=== PATIENT | male | born 1970 | race African-American/Black ===

== ENCOUNTER 2016-08-02 13:18 | Observation (INO) | payer OTHER ==
[2016-08-02 13:45] VITALS: BMI 38.5
[2016-08-02] MEDS ORDERED: NS 1,000 ML IV ONE (13:46)
[2016-08-02] MEDS ORDERED: ADENOSINE 6 MG/2 ML SYR IV ONE (13:46)
[2016-08-02 13:56] LABS: AUTOMATED BASOPHIL 0.7 % (0-2); AUTOMATED EOSINOPHIL 3.7 % (0-5); AUTOMATED LYMPH 39.2 % (17-44); AUTOMATED MONOCYTE 9.1 % (3-10); AUTOMATED NEUTROPHIL 47.3 % (45-76); MPV 7.7 fL (7.4-10.4)
[2016-08-02 14:07] LABS: BLOOD UREA NITROGEN 13 MG/DL (9-20); CALCIUM 8.8 MG/DL (8.4-10.2); CALCULATED OSMOLALITY 273 MOs/Kg (270-290); CHLORIDE 108 mEq/L (98-107); CPK TOTAL WITH POSSIBLE MB 369 IU/L (55-170); GLUCOSE 136 MG/DL (70-99); SODIUM LEVEL 141 mEq/L (137-146); TOTAL PROTEIN 7.6 G/DL (6.3-8.2)
--- NOTE | 2016-08-02 14:17 | EDPRACDOC ---
- General Information Chief Complaint: Chest Pain Stated Complaint: NECK PAIN WITH TIGHTNESS IN LT UPPER ARM Time Seen by Provider: 08/02/16 13:45 Mode of Arrival: Car Home Medications: Home Medications Unknown Med 1 tab PO .SEE COMMENTS 08/02/16 Allergies/Adverse Reactions: Allergies Allergy/AdvReac Type Severity Reaction Status Date / Time No Known Allergies Allergy Verified 08/02/16 13:39 - History of Present Illness Onset: today HPI: PT PRESENTS WITH CP AND PSVT. PT STATES WHEN HE WOKE UP THIS MORNING HE BEGAN HAVING MILD CP. STATES HE WENT TO WORK AND BEGAN HAVING LEFT ARM PAIN AND NUMBNESS AND NECK PAIN. PT PRESENTS WITH ED WITH HR 180 Chest Pain Location: Reports: Substernal Pain Radiation: Reports: Neck Symptoms Occur: Reports: While asleep Cardiac Risk Factors: Reports: None Cardiac History of: Reports: None PE Risk Factors: Reports: None Medications within 24 Hours: Reports: None Prehospital Care: Reports: None Pain Came On: Reports: Gradually Pain Status: Present Now Pain Description: Reports: Tightness Pain Severity: Mild Pain Worsens With: Reports: Nothing Pain Improves With: Reports: Nothing Associated Signs and Symptoms: Reports: Palpitations ED Past Medical History - History Reviewed Yes Nurses notes reviewed and agree except as marked - Patient Medical History Respiratory History: Reports: Asthma Systemic History: Denies: Cancer - Social Medical History Smoking Status: Never smoker EDM Review of Systems - Review of Systems ROS Negative Except as Marked: Yes All systems reviewed and were negative except as marked - Physical Exam Constitutional: Alert Oriented to: Time, Person, Place Last recorded Vital Signs: Last Vital Signs Temp 98.7 F 08/02/16 13:39 Pulse 160 H 08/02/16 13:53 Resp 18 08/02/16 13:39 BP 128/93 08/02/16 13:53 Pulse Ox 98 08/02/16 13:39 Oxygen Pulse Oxygen Saturation 98 O2 Device Room Air Oxygen Flow Rate Fraction of Inspired Oxygen ( FIO2) - HEENT Head: Normal ( normocephalic) Eye Exam: Normal (PERRL, EOMI, Sclera white) Oropharynx: Normal (Pharynx:Moist without exudate,Gums-no swelling) Nose: No Symptoms Reported (septum midline) Neck: Normal (FROM, trachea at midline) - Respiratory/Cardiovascular Respiratory: Normal - CTA (BBS clear to auscultation without adventitious sounds ) Cardiovascular: Tachycardia - GI Auscultation: Normal (NABS) Palpation: Normal (Soft,No rebound or guarding, non distended) Tenderness: Non tender Abdi's Sign: Negative Rectal Exam: Deferred - Musculoskeletal Back: Normal (Non-Tender) Extremities: Normal (Normal tone, Pulses 2+ No cyanosis or edema, FROM) - Integumentary Skin: Normal, Warm, Dry Lymphatics: Normal (no adenopathy) - Neurologic Memory Impaired: Normal Motor Function: Normal (Normal tone, Pulses 2+ No cyanosis or edema, FROM) Cranial Nerve: Normal (CN II-X11 intact sensation, strength 5/5) Cerebellar: Normal Mood Description: Normal Perception: Normal ED Chest Pain Exam - Respiratory/Cardiovascular Respiratory: Normal - CTA Cardiovascular/Chest: Tachycardia Radial Pulse: Normal Femoral Pulse: Normal Pedal Pulse: Normal Carotid Arteries: Normal Edema: negative: 1+, 2+, 3+, 4+, 5, 6 Chest Palpation: Normal - Differential Diagnosis Other - Action Patient received Aspirin within last 24 hours?: No ASA given in the ED: No Patient received Beta Ahmet within last 24hrs: No - Results All Results Reviewed and Normal except as Highlighted below: Yes 08/02/16 13:49 08/02/16 13:49 WBC 6.6 xk/uL (3.8-10.8) 08/02/16 13:49 RBC 5.63 xM/uL (4.70-6.10) 08/02/16 13:49 Hgb 14.3 g/dL (14.0-18.0) 08/02/16 13:49 Hct 43.9 % (42-52) 08/02/16 13:49 MCV 78 fL (80-94) L 08/02/16 13:49 MCH 25.5 pg (27-32) L 08/02/16 13:49 MCHC 32.7 g/dl (33-36) L 08/02/16 13:49 RDW 14.4 % (11.5-14.5) 08/02/16 13:49 Plt Count 264 xk/uL (130-400) 08/02/16 13:49 MPV 7.7 fL (7.4-10.4) 08/02/16 13:49 Neut % (Auto) 47.3 % (45-76) 08/02/16 13:49 Lymph % (Auto) 39.2 % (17-44) 08/02/16 13:49 [place] % (Auto) 9.1 % (3-10) 08/02/16 13:49 Eos % (Auto) 3.7 % (0-5) 08/02/16 13:49 Baso % (Auto) 0.7 % (0-2) 08/02/16 13:49 Absolute Neuts (auto) 3.10 xk/uL (1.7-8.2) 08/02/16 13:49 Absolute Lymphs (auto) 2.57 xk/uL (0.65-4.75) 08/02/16 13:49 Sodium 141 mEq/L (137-146) 08/02/16 13:49 Potassium 4.1 mEq/L (3.5-5.1) 08/02/16 13:49 Chloride 108 mEq/L (98-107) H 08/02/16 13:49 Carbon Dioxide 22 mMOL/L (22-33) 08/02/16 13:49 Anion Gap 15 mEq/L (8-16) 08/02/16 13:49 BUN 13 MG/DL (9-20) 08/02/16 13:49 Creatinine 0.90 MG/DL (0.66-1.25) 08/02/16 13:49 Estimated GFR (MDRD) > 60 mL/min (>=60) 08/02/16 13:49 Glucose 136 MG/DL (70-99) H 08/02/16 13:49 Calculated Osmolality 273 MOs/Kg (270-290) 08/02/16 13:49 Calcium 8.8 MG/DL (8.4-10.2) 08/02/16 13:49 Total Bilirubin 0.5 MG/DL (0.2-1.3) 08/02/16 13:49 AST 28 IU/L (17-59) 08/02/16 13:49 ALT 43 IU/L (21-72) 08/02/16 13:49 Alkaline Phosphatase 73 IU/L (38-126) 08/02/16 13:49 Creatine Kinase 369 IU/L (55-170) H 08/02/16 13:49 Total Protein 7.6 G/DL (6.3-8.2) 08/02/16 13:49 Albumin 4.1 G/DL (3.5-5.0) 08/02/16 13:49 Lab Results 08/02/16 08/02/16 13:49 13:49 WBC 6.6 RBC 5.63 Hgb 14.3 Hct 43.9 MCV 78 L MCH 25.5 L MCHC 32.7 L RDW 14.4 Plt Count 264 MPV 7.7 Neut % (Auto) 47.3 Lymph % (Auto) 39.2 [place] % (Auto) 9.1 Eos % (Auto) 3.7 Baso % (Auto) 0.7 Absolute Neuts (auto) 3.10 Absolute Lymphs (auto) 2.57 Sodium 141 Potassium 4.1 Chloride 108 H Carbon Dioxide 22 Anion Gap 15 BUN 13 Creatinine 0.90 Estimated GFR (MDRD) > 60 Glucose 136 H Calculated Osmolality 273 Calcium 8.8 Total Bilirubin 0.5 AST 28 ALT 43 Alkaline Phosphatase 73 Creatine Kinase 369 H Total Protein 7.6 Albumin 4.1 Laboratory Results - last 24 hr 08/02/16 08/02/16 13:49 13:49 WBC 6.6 RBC 5.63 Hgb 14.3 Hct 43.9 MCV 78 L MCH 25.5 L MCHC 32.7 L RDW 14.4 Plt Count 264 MPV 7.7 Neut % (Auto) 47.3 Lymph % (Auto) 39.2 [place] % (Auto) 9.1 Eos % (Auto) 3.7 Baso % (Auto) 0.7 Absolute Neuts (auto) 3.10 Absolute Lymphs (auto) 2.57 Sodium 141 Potassium 4.1 Chloride 108 H Carbon Dioxide 22 Anion Gap 15 BUN 13 Creatinine 0.90 Estimated GFR (MDRD) > 60 Glucose 136 H Calculated Osmolality 273 Calcium 8.8 Total Bilirubin 0.5 AST 28 ALT 43 Alkaline Phosphatase 73 Creatine Kinase 369 H Total Protein 7.6 Albumin 4.1 Laboratory Results 08/02/16 13:49 08/02/16 13:49 - EKG EKG #1 EKG Time: 13:45 -: Yes EKG interpreted by me Rate: bpm: 175 [place]: Normal Rhythm: PSVT Block: None Hypertrophy: None ST: Nonsp EKG #2 EKG Time: 13:54 -: Yes EKG interpreted by me Rate: bpm: 98 [place]: Normal Rhythm: NSR Block: None Hypertrophy: None ST: Normal Comments: AFTER ADENOSINE - Departure Disposition: Admit IP To This Hospital Condition: Stable Final Diagnosis: PSVT (paroxysmal supraventricular tachycardia) Chest pain Qualifiers: Chest pain type: unspecified Qualified Code(s): R07.9 - Chest pain, unspecified Instructions: Chest Pain (ED), Chest Wall Pain Education/Counseling Given To: Patient Education/Counseling Given Regarding: Diagnosis, Treatment, Prognosis, Follow Up Referrals: Carmelo Recinos MD [Staff Physician] - One Week Jorge Benoit II, MD [Staff Physician] - One Week Decision to Admit Time: 16:29 Decision to admit date: 08/02/16 Decision to admit: from ED - Physician Consulted Hospitalist Time Called: 16:29 Provider Called: Yamil Adler Time [employer]ator Returned Call: 16:29
--- NOTE | 2016-08-02 14:18 | DIRPT ---
CLINICAL DATA: Posterior neck and chest pain for 2 days. EXAM: PORTABLE CHEST 1 VIEW COMPARISON: 11/04/2015 FINDINGS: The heart size and mediastinal contours are within normal limits. Both lungs are clear. No evidence of pneumothorax or pleural effusion. The visualized skeletal structures are unremarkable. IMPRESSION: No active disease. Electronically Signed By: Jorge Ramsey M.D. On: 08/02/2016 14:15
[2016-08-02 14:22] LABS: CPKMB 2.8 ng/mL (0-4.5)
[2016-08-02 14:48] LABS: ALL NEG? YES; MDMA* NEG (NEGATIVE); METHAMPHETAMINES NEG (NEGATIVE); OXYCODONE NEG (NEGATIVE)
[2016-08-02 14:49] LABS: LEUKOCYTES/URINE NEG (NEGATIVE); NITRITE/URINE NEG (NEGATIVE); RBC/URINE 0-2 (0-2); URINE OCCULT BLOOD NEG (NEG/TRACE); WBC/URINE 0-2 (0-2)
[2016-08-02] MEDS ORDERED: ACETAMINOPHEN 325 MG/TAB TABLET PO PRN (16:17)
[2016-08-02] MEDS ORDERED: NITROGLYCERINE 0.4 MG TAB SL PRN (16:17)
[2016-08-02] MEDS ORDERED: ONDANSETRON HCL 4 MG/2 ML VIAL IV PRN (16:17)
--- NOTE | 2016-08-02 16:38 | HISTPHYS ---
- Chief Complaint Chest pain and left arm numbness - History of Present Illness This is a pleasant 46-year-old gentleman who does not take any regular medication, and has an active job working in a [employer]. He was in his usual state of health until this morning, when he woke up with some burning sensation in his mid sternal area. He took some Tylenol and went to work despite this pain, and when he got to work at about 7:00 a.m. lifting up heavy piece of wood and placing them in a soft, he started to develop worsening burning and pain in his chest, associated with posterior neck pain, as well as pain in his left forearm with associated numbness and tingling. He also felt like maybe his left arm was a little weaker than the right. In the emergency department, he was found to have sinus tachycardia in the 180s, he responded well to adenosine and his heart rate is now closer to normal. His left arm tingling and neck pain have resolved, though Jaden does still feels some slight burning sensation in the mid sternal area of his chest. He denies any recent fevers, chills, nausea, vomiting, cough, shortness of breath, weight loss or gain, diarrhea or constipation. No sick contacts. No therapies prior to arrival, other than the aforementioned Tylenol early this morning. - Medical History Respiratory History: Reports: Asthma Systemic History: Denies: Cancer - Medictions/Allergies Allergies No Known Allergies Allergy (Verified 08/02/16 13:39) Home Medications Unknown Med 1 tab PO .SEE COMMENTS 08/02/16 - Social History Smoking Status: Never smoker - Review of Systems Yes All systems reviewed and were negative except as marked (And as mentioned in the history of present illness above.) - Physical Exam Vital Signs: Initial Vitals Temperature 98.7 F 08/02/16 13:39 Pulse Rate 176 H 08/02/16 13:39 Respiratory Rate 18 08/02/16 13:39 Blood Pressure 122/74 08/02/16 13:39 Pulse Oxygen Saturation 98 08/02/16 13:39 Constitutional: Alert (Awake, Fully oriented, well appearing. No apparent distress) Oriented to: Time, Person, Place - HEENT Head: Normal (normocephalic,atraumatic, trachea midline) Eye: Normal (EOMI, Sclera white) Oropharynx: Normal (moist) Nose: No Symptoms Reported (without discharge or bleeding) Respiratory: Normal - CTA (Clear to auscultation bilaterally, no wheezing,rales or rhonchi. No use of accessory muscles) Cardiovascular: Normal (RRR, no murmurs, rubs or gallops) - GI Palpation: Normal (soft, non distended and nontender) - Musculoskeletal Extremities: Normal (normal tone, no cyanosis or edema) - Integumentary Skin: Normal (no rashes or lesions) - Neurologic Cranial Nerve: Normal (CN II-XII intact) Mood Description: Normal (Fully oriented and appropiate affect) - Focused CV Perfusion Exam Vital Signs: Last Vital Signs Temp 98.7 F 08/02/16 13:39 Pulse 82 08/02/16 16:00 Resp 18 08/02/16 16:00 BP 145/67 08/02/16 16:00 Pulse Ox 98 08/02/16 16:00 - Lab Results Laboratory Tests 08/02/16 08/02/16 08/02/16 13:49 13:49 13:49 WBC 6.6 Hgb 14.3 Hct 43.9 Plt Count 264 INR 1.0 Potassium 4.1 BUN 13 Creatinine 0.90 Troponin I 0.16 [id number] Pept 714 H - Diagnostic Findings Chest x-ray done in the emergency department today is unremarkable for any acute process. - Assessment (1) Chest pain R07.9 - CHEST PAIN, UNSPECIFIED Acute Qualifiers: Chest pain type: unspecified Qualified Code(s): R07.9 - Chest pain, unspecified Admitted to hospital with chest pain. Related to PSVT, as noted below. Will admit to the hospital under observation status using chest pain observation order set. Will give a cardiac diet today, and make him NPO after midnight. Will give him aspirin, beta-forrest and place him on telemetry. If his troponins are negative, he will have stress testing in the morning. This was explained to the patient, and he was told that he can likely be discharged from the hospital tomorrow his chest pain is proven to be noncardiac in nature. (2) PSVT (paroxysmal supraventricular tachycardia) I47.1 - SUPRAVENTRICULAR TACHYCARDIA Acute Responded well to adenosine in the emergency department. Patient was paced on beta-forrest per chest pain observation order set protocol. Case Care Discussed with: Patient Total Time: 40
[2016-08-02 16:55] LABS: CPK TOTAL WITH POSSIBLE MB 348 IU/L (55-170)
[2016-08-02] MEDS ORDERED: Pharmacy Order Set Alert SCH (17:00)
[2016-08-02 17:10] LABS: CPKMB 3.2 ng/mL (0-4.5)
[2016-08-02] MEDS: ASPIRIN 325 MG TAB PO SCH (18:24)
[2016-08-02] MEDS: METOPROLOL TARTRATE 25 MG TAB PO SCH ×2 (18:25→21:36)
[2016-08-02] MEDS ORDERED: Vaccine Screening Complete SCH (20:00)
[2016-08-03 04:56] LABS: MPV 8.3 fL (7.4-10.4)
[2016-08-03 05:09] LABS: BLOOD UREA NITROGEN 14 MG/DL (9-20); CALCIUM 8.8 MG/DL (8.4-10.2); CALCULATED OSMOLALITY 267 MOs/Kg (270-290); CHLORIDE 104 mEq/L (98-107); GLUCOSE 101 MG/DL (70-99); LDL (calc.) 163.2 MG/DL (<100); SODIUM LEVEL 138 mEq/L (137-146); VLDL (calc.) 25.8 MG/DL (5-40)
[2016-08-03] MEDS ORDERED: FLU VACCINE (Afluria) 0.5 ML DOSE IM ONE (08:00)
[2016-08-03] MEDS ORDERED: SESTAMIBI 8 MCI V IV ONE (12:02)
[2016-08-03 13:28] VITALS: TEMP 97.7
[2016-08-03] MEDS: ASPIRIN 325 MG TAB PO SCH (15:11)
[2016-08-03] MEDS: METOPROLOL TARTRATE 25 MG TAB PO SCH (15:11)
--- NOTE | 2016-08-03 15:47 | PCM.DCS92 ---
- Final/Secondary Discharge Diagnosis (1) Chest pain Acute R07.9 - CHEST PAIN, UNSPECIFIED Present on Admission: Yes precordial pain R07.2 - Precordial pain Comment: Admitted to hospital with chest pain. Related to PSVT, as noted below. Was admitted to the hospital under observation status using chest pain observation order set. Was given a cardiac diet, and made NPO after midnight. Gave him aspirin, beta-forrest and placed him on telemetry. Since his troponins were negative, he was scheduled for stress testing in the morning. There was no evidence of cardiac ischemia. This was explained to the patient, and he was told that he could be discharged from the hospital once his chest pain was proven to be noncardiac in nature. (2) PSVT (paroxysmal supraventricular tachycardia) Acute I47.1 - SUPRAVENTRICULAR TACHYCARDIA Present on Admission: Yes Comment: Responded well to adenosine in the emergency department. Patient was paced on beta-forrest per chest pain observation order set protocol. (3) Hyperlipidemia Acute E78.5 - HYPERLIPIDEMIA, UNSPECIFIED Present on Admission: Yes mixed hyperlipidemia E78.2 - Mixed hyperlipidemia Comment: Start Lipitor 20 mg daily at HS. (4) Hyperglycemia due to type 2 diabetes mellitus Acute E11.65 - TYPE 2 DIABETES MELLITUS WITH HYPERGLYCEMIA Present on Admission: Yes without intermediate school teacher use E11.65 - Type 2 diabetes mellitus with hyperglycemia Comment: Begin diabetic diet and metformin 500 mg daily. Follow up with PCP in 1-2 weeks. Discharge Disposition: Home Discharge Condition: Improved Cognitive Discharge Status: Unimpaired Fuctional Discharge Status: Independent Physician Follow up/Referrals: Jorge Benoit II, MD [Primary Care Provider] - One Week New Prescriptions: Atorvastatin Calcium [Lipitor] 20 mg PO HS #30 tab Metformin HCl [Metformin HCl ER] 500 mg PO DAILY #30 tab Metoprolol Succinate (XL) [Toprol Xl] 25 mg PO DAILY #30 tab Discharge Home Medication List Atorvastatin Calcium [Lipitor] 20 mg PO HS #30 tab 08/03/16 [Rx Last Taken Unknown] Metformin HCl [Metformin HCl ER] 500 mg PO DAILY #30 tab 08/03/16 [Rx Last Taken Unknown] Metoprolol Succinate (XL) [Toprol Xl] 25 mg PO DAILY #30 tab 08/03/16 [Rx Last Taken Unknown] O2 Device: Room Air Diet at Discharge: Heart Healthy, Diabetic, 1800 Calorie Activity: As Tolerated Call Office For: Worsening Symptoms Discontinue use of:: Alcohol, All Types of Tobacco - DC Summary Notes Hospital Course Note:: Discharge summary on patient named ALEJANDRO MACKAY admitted to [facility] on 08/02/16 by Yamil Adler MD. Date of discharge is []. This is a pleasant 46-year-old gentleman who does not take any regular medication, and has an active job working in a [employer]. He was in his usual state of health until this morning, when he woke up with some burning sensation in his mid sternal area. He took some Tylenol and went to work despite this pain, and when he got to work at about 7:00 a.m. lifting up heavy piece of wood and placing them in a soft, he started to develop worsening burning and pain in his chest, associated with posterior neck pain, as well as pain in his left forearm with associated numbness and tingling. He also felt like maybe his left arm was a little weaker than the right. In the emergency department, he was found to have sinus tachycardia in the 180s, he responded well to adenosine and his heart rate is now closer to normal. His left arm tingling and neck pain have resolved, though Jaden does still feels some slight burning sensation in the mid sternal area of his chest. He denies any recent fevers, chills, nausea, vomiting, cough, shortness of breath, weight loss or gain, diarrhea or constipation. No sick contacts. No therapies prior to arrival, other than the aforementioned Tylenol early this morning. Admitted to hospital with chest pain. Related to PSVT, as noted below. Was admitted to the hospital under observation status using chest pain observation order set. Was given a cardiac diet, and made NPO after midnight. Gave him aspirin, beta-forrest and placed him on telemetry. Since his troponins were negative, he was scheduled for stress testing in the morning. There was no evidence of cardiac ischemia. This was explained to the patient, and he was told that he could be discharged from the hospital once his chest pain was proven to be noncardiac in nature. He was noted to be diabetic with a HgA1c of 6.6. He also had elevated LDL cholesterol levels with a low HDL. This was felt to be consistent with diabetes also, and therefore he was started on metformin, a diabetic diet, Lipitor, and Toprol-XL to control his heart rate. He will need follow-up with Dr. Benoit in 1-2 weeks. Total Time: 35 min Code: 99475 - Physical Exam Vital Signs: Last Vital Signs Temp 97.7 F 08/03/16 13:25 Pulse 83 08/03/16 13:25 Resp 18 08/03/16 13:25 BP 127/79 08/03/16 13:25 Pulse Ox 93 08/03/16 13:25 Oxygen Pulse Oxygen Saturation 93 O2 Device Room Air Oxygen Flow Rate 2 Fraction of Inspired Oxygen ( FIO2) Constitutional: No apparent distress, Alert (Awake, Fully oriented, well appearing. No apparent distress) Oriented to: Time, Person, Place - HEENT Head: Normal (normocephalic,atraumatic, trachea midline) Eye: Normal (EOMI, Sclera white) Oropharynx: Normal (moist) Tympanic Membrane: Normal ENT EAC: Normal Nose: No Symptoms Reported (without discharge or bleeding) - Respiratory/Cardiovascular Respiratory: Normal - CTA (Clear to auscultation bilaterally, no wheezing,rales or rhonchi. No use of accessory muscles) Cardiovascular: Normal (RRR, no murmurs, rubs or gallops) - GI Palpation: Normal (soft, non distended and nontender) Tenderness: Non tender Abdi's Sign: Negative Rectal Exam: Deferred - Musculoskeletal Back: Normal Extremities: Normal (normal tone, no cyanosis or edema) - Integumentary Skin: Normal (no rashes or lesions) Lymphatics: Normal - Neurologic Memory Impaired: Normal Motor Function: Normal Cranial Nerve: Normal Cerebellar: Normal Mood Description: Normal (Fully oriented and appropiate affect) Thought: Coherent Perception: Normal
[2016-08-03 15:49] VITALS: BP 144/77
[2016-08-03 16:57] VITALS: PULSE 68
--- NOTE | 2016-08-03 17:05 | CAPUEKG ---
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 Abnormal ECG Electronically Signed On 08-03-16 17:04:24 EST by Chaparro Montelongo [email or web address] [id number]
--- NOTE | 2016-08-03 19:14 | CAPUCARD ---
EXERCISE STRESS CARDIOLITE REST STRESS SCAN. IDENTIFICATION: A 46-year-old male. REFERRING DOCTOR: Yamil Adler MD INDICATIONS: Chest pain. The patient's baseline EKG reveals sinus rhythm, nonspecific ST-T changes, resting heart rate 59, blood pressure 128/84 millimeters of mercury. The patient exercised for 8 minutes on standard Eamon protocol and achieved 82% predicted maximal heart rate with 8 METs of exercise. Test terminated because of dyspnea. No chest pain occurred. There were nondiagnostic EKG changes and no arrhythmias. Cardiolite images do not reveal any evidence of ischemia. Soft tissue attenuation of the anterior segments of the left ventricle seen. Ejection fraction calculated at 56%. IMPRESSION: 1. No evidence of ischemia on the scan. 2. Preserved ejection fraction. 3. Normal exercise capacity. [id number]
== END 2016-08-03 17:13 | disposition home or self-care (01) ==
LOC: ED 13:18 → PCU 16:17
PROVIDERS: ADMIT Internal Medicine; ATTEND Family Medicine
DX: R07.9 Chest pain, unspecified (principal); I47.0 Re-entry ventricular arrhythmia; E78.5 Hyperlipidemia, unspecified; E11.65 Type 2 diabetes mellitus with hyperglycemia; J45.909 Unspecified asthma, uncomplicated
CPT/HCPCS: 36415; 71010; 78452; 80048; 80053; 80061; 80307; 81001; 82550; 82553; 83036; 83880; 84484; 85025; 85027; 85610; 85730; 93005; 93017; 96361; 96374; 99284; A9500; G0378; J0153; J3490; 90656